=== PATIENT | male | born 1970 | race African-American/Black ===

== ENCOUNTER 2019-10-17 14:15 | Inpatient (IN) | payer SELFPAY ==
[~2019-10-17] VITALS: Ht 167.6 cm; Wt 46.7 kg
[2019-10-17] VITALS (12 sets, daily range): BP systolic 124–173; BP diastolic 80–114
--- NOTE | 2019-10-17 14:20 | NUR ---
[address], altered passed out in sidewalk. 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 bg 80 well logging captain, was given 1 1/2 liter ns well logging captain. rectal prolapse noted. On room air, connected to the monitor and pulse ox, cooling measures initiated. Warm to touch. MD at bedside. Will continue to monitor accordingly.
[2019-10-17] MEDS ORDERED: IV NS 0.9% 500 ML BAG IV ONE (14:30)
[2019-10-17] MEDS ORDERED: IV NS 0.9% 1,000 ML BAG IV ONE (14:30)
[2019-10-17 14:55] LABS: BASOPHILS % (AUTO) 0.1 % (0.0-2.0); EOSINOPHILS % (AUTO) 0.1 % (0.0-6.0); HEMATOCRIT 26 % (39-51); HEMOGLOBIN 8.5 g/dL (13.5-17.5); LYMPHOCYTES % (AUTO) 12.9 % (20.0-44.0); MEAN CORPUSCULAR HGB CONC 32 g/dl (31.0-36.0); MEAN CORPUSCULAR VOLUME 103 fL (80-96); MONOCYTES # (AUTO) 0.8 /CMM (0.1-1.30); MONOCYTES % (AUTO) 10.9 % (2.0-12.0); NEUTROPHILS # (AUTO) 5.7 /CMM (1.8-8.9); PLATELET COUNT (AUTO) 133 /CMM (150-450); RED BLOOD CELL COUNT(AUTO) 2.56 MIL/uL (4.5-6.0); WHITE BLOOD COUNT (AUTO) 7.5 K/uL (4.3-11.0)
[2019-10-17 15:11] LABS: ALANINE AMINOTRANSFERASE 23 U/L (12-78); ALBUMIN 1.7 g/dL (3.4-5.0); ALKALINE PHOSPHATASE 29 U/L (46-116); ASPARTATE AMINOTRANSFERASE 68 U/L (15-37); BILIRUBIN,DIRECT 0.3 mg/dL (0.0-0.2); BILIRUBIN,TOTAL 0.5 mg/dL (0.2-1.0); CALCIUM, SERUM 6.4 mg/dL (8.5-10.1); CHLORIDE 97 mmol/L (98-107); CREATININE 3.2 mg/dL (0.6-1.3); GLUCOSE 56 mg/dL (74-106); SODIUM SERUM 129 mmol/L (136-145); TOTAL PROTEIN, SERUM 4.1 g/dL (6.4-8.2); UREA NITROGEN, BLOOD 36 mg/dL (7-18)
[2019-10-17 15:14] LABS: CARBON DIOXIDE 9 mmol/L (21-32); POTASSIUM 2.3 mmol/L (3.5-5.1)
--- NOTE | 2019-10-17 15:20 | NUR ---
CALLED [facility]AGED DR TORRES
[2019-10-17] MEDS ORDERED: POTASSIUM CHLORIDE 10 MEQ/50 ML PREMIXED IVPB FOR PERIPHERAL LINE IV ONE (15:30)
[2019-10-17] MEDS ORDERED: DEXTROSE 50%-WATER 50 ML DISP.SYRIN IVP ONE (15:30)
[2019-10-17] MEDS ORDERED: DEXTROSE 50%-WATER 50 ML DISP.SYRIN ONE (15:45)
--- NOTE | 2019-10-17 15:45 | NUR ---
CALLED [facility] PAGED DR TORRES
[2019-10-17] MEDS ORDERED: POTASSIUM CL. PREMIX PERIPHER. 50 ML ONE (15:51)
[2019-10-17] MEDS ORDERED: LORAZEPAM INJ 2 MG/ML VIAL IV ONE ×3 (16:00→17:30)
[2019-10-17] MEDS ORDERED: ONDANSETRON HCL/PF 4 MG/2 ML VIAL IV ONE (16:00)
[2019-10-17] MEDS ORDERED: ONDANSETRON HCL/PF 4 MG/2 ML VIAL ONE (16:03)
[2019-10-17] MEDS ORDERED: LORAZEPAM INJ 2 MG/ML VIAL ONE ×3 (16:04→17:11)
--- NOTE | 2019-10-17 16:08 | NUR ---
PT NOTED HAVING CONVULSION, TACHY AT 128, ERMD AT BEDSIDE. MEDICATED ORDERED.
[2019-10-17 16:09] LABS: CREATINE KINASE, TOTAL 547 U/L (39-308)
[2019-10-17 16:17] LABS: THYROID STIMULATING HORMONE 1.576 uIU/mL (0.358-3.74)
--- NOTE | 2019-10-17 16:24 | NUR ---
ICU 252
[2019-10-17 16:28] LABS: APPEARANCE,URINE Slightly Cloudy (CLEAR); BILIRUBIN,URINE SMALL (NEGATIVE); BLOOD, URINE Moderate Ery/uL (NEGATIVE); COLOR,URINE Yellow (YELLOW); KETONES,URINE Negative (NEGATIVE); LEUKOCYTE ESTERASE ,URINE Negative (NEGATIVE); NITRITE, URINE Negative (NEGATIVE); PROTEIN,URINE 100 mg/dl (NEGATIVE); UGLUCOSE Negative (NEGATIVE); UROBILINOGEN,URINE 0.2 EU/dL (0.2)
[2019-10-17 16:34] LABS: WBC,URINE 0-2 /HPF (0-3)
[2019-10-17 16:35] LABS: BACTERIA,URINE Few /HPF (None Seen); COARSE GRANULAR CASTS,URINE Few /LPF (None Seen); SQUAMOUS EPITHELIAL CELL,UR Few /HPF (None Seen)
[2019-10-17] MEDS ORDERED: LORAZEPAM INJ 2 MG/ML VIAL IV PRN (18:00)
--- NOTE | 2019-10-17 18:03 | NUR ---
viticulturist RECEIVED PT FROM ER NON RESPONSIVE DOES NOT FOLLOW MOVES EXTREMITIES, VS STABLE PROVIDED BEDBATH PT HAD LOOSE BM, MD DR MELISSA Zurita AT BEDSIDE WILL PUT ORDERS TO FOLLOW, WILL CONTINUE TO MONITOR. PT HAS SKIN TEAR L SHOULDER AND L KNEE
--- NOTE | 2019-10-17 18:06 | NUR ---
wheeled patient via gurney accompanied by another RN in no distress. RN Oscar at bedside to assume care.
[2019-10-17] MEDS ORDERED: ONDANSETRON HCL/PF 4 MG/2 ML VIAL IVP PRN (18:30)
[2019-10-17] MEDS ORDERED: ACETAMINOPHEN 650 MG/SUPP.RECT RC PRN (18:30)
[2019-10-17] MEDS: IV D5/0.45 NACL 1,000 ML IV PRN (18:40)
[2019-10-17 18:58] LABS: HEMATOCRIT 39 % (39-51); HEMOGLOBIN 12.9 g/dL (13.5-17.5); LYMPHOCYTES # (AUTO) 0.8 /CMM (0.8-4.8); LYMPHOCYTES % (AUTO) 5.5 % (20.0-44.0); MEAN CORPUSCULAR HGB CONC 33 g/dl (31.0-36.0); MEAN CORPUSCULAR VOLUME 100 fL (80-96); MONOCYTES # (AUTO) 1.5 /CMM (0.1-1.30); MONOCYTES % (AUTO) 10.2 % (2.0-12.0); NEUTROPHILS # (AUTO) 12.1 /CMM (1.8-8.9); NEUTROPHILS % (AUTO) 84.3 % (43.0-81.0); PLATELET COUNT (AUTO) 115 /CMM (150-450); RED BLOOD CELL COUNT(AUTO) 3.94 MIL/uL (4.5-6.0); WHITE BLOOD COUNT (AUTO) 14.3 K/uL (4.3-11.0)
[2019-10-17 19:22] LABS: CALCIUM, SERUM 7.6 mg/dL (8.5-10.1); CREATININE 2.7 mg/dL (0.6-1.3); MAGNESIUM 2.5 mg/dL (1.8-2.4); PHOSPHORUS 5.1 mg/dL (2.5-4.9)
[2019-10-17 19:30] LABS: POTASSIUM 2.8 mmol/L (3.5-5.1)
--- NOTE | 2019-10-17 19:30 | NUR ---
COLLEGE FOOTBALL COACH OPENING NOTE, RECEIVED PATIENT IN BED AWAKE/ALERT X1. PATIENT IS VERY LETHARGIC. NOT ABLE TO COMMUNICATE AT THIS TIME. ON 2L NS , TOLERATING WELL WITH 100%. COVID RESULT PENDING. IV ON RFA #16 AND LFA#18 FLUSHING WELL. RUNNING D51/5NS @125. NO S/S OF INFILTRATION NOTED. TANYA UPPER EXTREMITIES CONTRACTED. FC DRAINING CLEAR/YELLOW URINE TO THE GRAVITY. SAFETY MEASURES IN PLACE. SR UPX2 BED IN LOW/LOCKED POSITION CALL LIGHT WITHIN REACH. WILL CONTINUE TO MONITOR THE PATIENT CLOSELY.
[2019-10-17] MEDS ORDERED: Thiamine 100 MG in IV D5W 50 ML IV SCH (20:00)
--- NOTE | 2019-10-17 20:00 | NUR ---
RECEIVED CRITICAL LAB VALUE FROM LAB. WHITEPRINTING MACHINE OPERATOR DR VINAYAK GARCIA NOTIFIED. PROTOCOL INITIATED. VSS. NO S/S OF DISTRESS AT THIS TIME. WILL CONTINUE TO MONITOR.
[2019-10-17] MEDS: POTASSIUM CL. PREMIX PERIPHER. 50 ML IV SCH ×2 (20:19→21:31)
[2019-10-17] MEDS ORDERED: Folic acid 1 MG in IV D5W 50 ML IV SCH (21:00)
--- NOTE | 2019-10-17 21:00 | NUR ---
CRITICAL LAB VALUE, PROCALCITONIN @37.38 WAS REPORTED FROM LAB BUILDING DRAFTING OFFICER . DR LICEA WAS NOTIFIED. WILL CONTINUE TO MONITOR THE PATIENT CLOSELY
[2019-10-17 23:20] LABS: CALCIUM, SERUM 7.2 mg/dL (8.5-10.1); CREATININE 2.2 mg/dL (0.6-1.3); POTASSIUM 3.1 mmol/L (3.5-5.1)
[2019-10-18] VITALS (24 sets, daily range): BP systolic 116–156; BP diastolic 77–100
[2019-10-18 04:51] LABS: BASOPHILS % (AUTO) 0.2 % (0.0-2.0); HEMATOCRIT 35 % (39-51); HEMOGLOBIN 11.7 g/dL (13.5-17.5); LYMPHOCYTES # (AUTO) 0.7 /CMM (0.8-4.8); LYMPHOCYTES % (AUTO) 8.1 % (20.0-44.0); MEAN CORPUSCULAR HGB CONC 34 g/dl (31.0-36.0); MEAN CORPUSCULAR VOLUME 97 fL (80-96); MONOCYTES # (AUTO) 0.9 /CMM (0.1-1.30); NEUTROPHILS # (AUTO) 6.9 /CMM (1.8-8.9); NEUTROPHILS % (AUTO) 80.7 % (43.0-81.0); PLATELET COUNT (AUTO) 126 /CMM (150-450); RED BLOOD CELL COUNT(AUTO) 3.61 MIL/uL (4.5-6.0); WHITE BLOOD COUNT (AUTO) 8.5 K/uL (4.3-11.0)
[2019-10-18 05:10] LABS: CALCIUM, SERUM 7.7 mg/dL (8.5-10.1); CREATININE 1.8 mg/dL (0.6-1.3); MAGNESIUM 2.3 mg/dL (1.8-2.4); PHOSPHORUS 3.5 mg/dL (2.5-4.9); POTASSIUM 2.9 mmol/L (3.5-5.1)
[2019-10-18 05:13] LABS: THYROID STIMULATING HORMONE 1.93 uIU/mL (0.358-3.74)
[2019-10-18] MEDS: POTASSIUM CL. PREMIX PERIPHER. 50 ML IV SCH ×4 (06:11→10:27)
[2019-10-18] MEDS: IV D5/0.45 NACL 1,000 ML IV PRN ×2 (06:16→18:31)
--- NOTE | 2019-10-18 06:54 | NUR ---
EVICTION SPECIALIST OPENING NOTE, PATIENT IN BED AWAKE/ALERT X2/3. PATIENT IS ABLE TO COMMUNICATE. ON 2L NS , TOLERATING WELL WITH 100%. COVID RESULTED NEGATIVE. IV ON RFA #16 AND LFA#18 FLUSHING WELL. RUNNING D51/5NS @125 AND POTASSIUM 50 ML/HR, NO S/S OF INFILTRATION NOTED. NO MORE CONTRACTION ON UPPER/LOWER EXTREMITIES. FC DRAINING CLEAR/YELLOW URINE TO THE GRAVITY. SAFETY MEASURES IN PLACE. SR UPX3. BED IN LOW/LOCKED POSITION CALL LIGHT WITHIN REACH. WILL ENDORSE THE PATIENT TO AM RN FOR KONSTANTIN.
[2019-10-18] MEDS ORDERED: PANTOPRAZOLE 40 MG VIAL IV SCH (09:00)
--- NOTE | 2019-10-18 09:46 | NUR ---
CEILING CLEANER RECEIVED PT IN BED AO X3 DROWSY, IV ACCESS X2 PATENT, SWANN CAT PATENT DRAINING YELLOW URINE, SAFETY PRECAUTIONS TAKEN, CALL LIGHT W/ IN REACH CALLED PHARMACY SPOKE WITH TATY TO RECHECK IF RIGHT AMOUNT OF POTASSIUM CHLORIDE IS ORDERED PHARMACYST GAVE OK TO CONTINUE TO GIVE 8 BAGS TOTAL OF 80 MEQ. WILL FOLLOW ORDERS AND CONT TO MONITOR PT.
[2019-10-18] MEDS ORDERED: POTASSIUM CHLORIDE 20 MEQ TAB.PRT.SR PO ONE (12:00)
--- NOTE | 2019-10-18 12:53 | NUR ---
horticultural worker pt transfered to med surger floor under stable conditions aox2 vs stable l forearm skin tear noticed picture taken dressing placed, zamora removed as ordered pt in room 308-1 stable conditiosn.
--- NOTE | 2019-10-18 12:55 | NUR ---
RN NOTES RECEIVED PATIENT FROM ICU, REPORT GIVEN BY MELISSA RN. ALERT ORIENTED X 2-3. NO ACUTE DISTRESS NOTED, BREATHING UNLABORED, NO SOB NOTED. IV ACCESS PATENT AND INTACT, NO REDNESS, NO BLEEDING, NO SWELLING NOTED. SAFETY MEASURES IN PLACE. CALL LIGHT WITHIN REACH. WILL CONTINUE TO MONITOR ACCORDINGLY.
[2019-10-18] MEDS: THIAMINE HCL 100 MG TABLET PO SCH (12:59)
[2019-10-18] MEDS: FOLIC ACID 1 MG TABLET PO SCH (12:59)
--- NOTE | 2019-10-18 15:00 | NUR ---
MS RN NOTES PATIENT URINATED NOTED 500 ML CLEAR YELLOW URINE.
--- NOTE | 2019-10-18 16:19 | NUR ---
11:30am Supervisor Litharge met with patient at bedside for Supervisor Litharge consultation. Patient is a 49 year old male, considered to be homeless. Patient is alert and oriented x2. Patient was lying down in bed. Throughout the interview, the patient would close his eyes and remain silent for a few minutes and this SW would call out his name to redirect him. Patient was responsive to this. Patient stated that he lives in an apartment with his sister Johanna . Patient was able to confirm his date of , social security number and address on the face sheet. 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 Patient reports that the sister pays him $45 a day. Patient reports that he consumes 2 wine bottles every single day. Patient stated that he has been drinking 2 bottles for months now. Patient denies any drug use. Patient reports smoking a pack of cigarettes every day. Patient reports past history of suicidal ideation and mentioned one attempt, patient stated 20 years ago not now and showed this SW some scarring on his wrist. Patient denies homicidal ideation. Patient reports visual hallucinations in his dream of a figure, just standing there no words or movement. Patient reports that he was diagnosed with schizophrenia and currently denies taking any medications. Patient reports not having psychiatrist on his primary care team and shook his head up and down in agreement of receiving resources on mental health treatment from this SW. Patient provided verbal consent for this SW to contact his sister Johanna to confirm that he lives in the home. SW to also provide the patient with mental health resources. This SW to remain available for all patient needs.
--- NOTE | 2019-10-18 16:21 | NUR ---
1:00pm SW was able to contact this patient sister Johanna at . Johanna, patients sister, confirms that patient does live with her at the residence on file. Patients sister would like resources for GR benefits and alcohol treatment for her brother. This SW to provide the patient with this information after formally discussing this with him. Patients sister asked for information to be sent via email at [email or web address], this SW to try to send resources via email but will also leave paper copy with the patient. This SW to remain available to the patient as needed.
--- NOTE | 2019-10-18 18:53 | NUR ---
MS RN NOTES PATIENT IN BED ALERT ORIENTED X 2-3. NO ACUTE DISTRESS NOTED, BREATHING UNLABORED, NO SOB NOTED. IV ACCESS PATENT AND INTACT, NO REDNESS, NO BLEEDING, NO SWELLING NOTED. NEEDS ATTENDED AND ANTICIPATED. SAFETY MEASURES IN PLACE. CALL LIGHT WITHIN REACH. WILL ENDORSE TO NIGHT NURSE FOR CONTINUITY OF CARE
--- NOTE | 2019-10-18 20:00 | NUR ---
MS/RN OPENING NOTE Patient awake in bed. A/O x 2-3. Face is symmetrical. Mucous membranes pink and moist. No JVD. Pedal pulses 2+, symmetrical. Breath sounds even, clear, unlabored, no signs of acute distress or SOB. Abdomen soft, round, non tender. Patient voids via urinal, clear yellow urine. IV site patent and intact. No signs of infiltration. Extremity strength WNL. Skin tear/burn noted on left shoulder, left knee, and left forearm. Wound bed bright pink/red. Wounds dressed in xeroform and krilex. Dressing dry and intact, no drainage. Bed in low position, wheels locked, side rails up x2, call light within reach.
[2019-10-19 00:51] VITALS: BP 153/100
--- NOTE | 2019-10-19 06:03 | NUR ---
MS/RN CLOSING NOTE Patient asleep in bed. A/O x 2-3. Breath sounds even, clear, unlabored, no signs of acute distress or SOB. Abdomen soft, round, non tender. Patient voids via urinal, clear yellow urine. IV site patent and intact. No signs of infiltration. Extremity strength WNL. Skin tear/burn noted on left shoulder, left knee, and left forearm. Wound bed bright pink/red. Wounds dressed in xeroform and kirlex. Dressing dry and intact, no drainage. Bed in low position, wheels locked, side rails up x2, call light within reach.
[2019-10-19 06:43] LABS: EOSINOPHILS % (AUTO) 0.2 % (0.0-6.0); HEMATOCRIT 36 % (39-51); HEMOGLOBIN 11.8 g/dL (13.5-17.5); LYMPHOCYTES # (AUTO) 0.5 /CMM (0.8-4.8); LYMPHOCYTES % (AUTO) 6.9 % (20.0-44.0); MEAN CORPUSCULAR HGB CONC 33 g/dl (31.0-36.0); MEAN CORPUSCULAR VOLUME 99 fL (80-96); MONOCYTES # (AUTO) 0.9 /CMM (0.1-1.30); MONOCYTES % (AUTO) 11.3 % (2.0-12.0); NEUTROPHILS # (AUTO) 6.3 /CMM (1.8-8.9); NEUTROPHILS % (AUTO) 81.6 % (43.0-81.0); PLATELET COUNT (AUTO) 137 /CMM (150-450); RED BLOOD CELL COUNT(AUTO) 3.62 MIL/uL (4.5-6.0); WHITE BLOOD COUNT (AUTO) 7.7 K/uL (4.3-11.0)
[2019-10-19 07:10] LABS: CALCIUM, SERUM 7.8 mg/dL (8.5-10.1); MAGNESIUM 2.2 mg/dL (1.8-2.4); PHOSPHORUS 2.1 mg/dL (2.5-4.9); POTASSIUM 3.2 mmol/L (3.5-5.1)
[2019-10-19] MEDS ORDERED: PANTOPRAZOLE 40 MG TABLET.DR PO SCH (07:30)
[2019-10-19 08:00] VITALS: BP 127/87
[2019-10-19] MEDS: THIAMINE HCL 100 MG TABLET PO SCH (08:36)
[2019-10-19] MEDS: FOLIC ACID 1 MG TABLET PO SCH (08:36)
[2019-10-19 11:05] LABS: IRON, SERUM 35 ug/dl (50-175); TOTAL IRON BINDING CAPACITY 966 ug/dl (250-450)
[2019-10-19] MEDS: POTASSIUM PHOSPHATE MM 7.5 MMOL in IV NS 0.9% 100 ML IV SCH ×2 (11:13→15:24)
[2019-10-19 11:19] LABS: FERRITIN 163 ng/mL (8-388)
[2019-10-19] MEDS ORDERED: METOPROLOL TARTRATE INJ 5 MG/5 ML AMPUL ONE ×3 (11:47→13:35)
[2019-10-19] MEDS ORDERED: NITROGLYCERIN 4.9 GM SPRAY ONE (11:48)
[2019-10-19] MEDS ORDERED: IV NS 0.9% 250 ML IV ONE (12:04)
[2019-10-19] MEDS ORDERED: IOHEXOL-350 100 ML VIAL IV ONE (12:04)
[2019-10-19] MEDS ORDERED: NITROGLYCERIN 4.9 GM SPRAY SL ONE (12:30)
[2019-10-19] MEDS ORDERED: METOPROLOL TARTRATE INJ 5 MG/5 ML AMPUL IVP ONE ×2 (12:30→13:30)
[2019-10-19] MEDS ORDERED: IV NS 0.9% 500 ML IV PRN (12:30)
[2019-10-19] MEDS ORDERED: VERAPAMIL HCL IV 5 MG/2 ML VIAL ONE (12:40)
[2019-10-19] MEDS ORDERED: NITROGLYCERIN 0.4 MG/TAB BOTTLE SL ONE (13:30)
[2019-10-19 16:00] VITALS: BP 119/77
--- NOTE | 2019-10-19 17:22 | NUR ---
MS RN NOTES SPOKE TO PATIENTS SISTER WILL WAIT FOR PATIENT AT HOME AND ASSIST PATIENT HOME. PATIENTS SISTER DOES NOT HAVE A CARE AND SHE IS UNABLE TO PICK PATIENT UP. [facility] WILL BE ARRANGED.
--- NOTE | 2019-10-19 18:10 | NUR ---
MS RN NOTES PATIENT DISCHARGED HOME IN STABLE CONDITION. DISCHARGE INSTRUCTIONS PROVIDED TO PATENT AND PATIENTS SISTER, BOTH VERBALIZED UNDERSTANDING. INSTRUCTED PATIENT AND PATIENTS SISTER WITH INSTRUCTIONS OF WOUND CARE. PROVIDED SUPPLIES TO PATIENT. CALLED SISTER WHEN DROPPING PATIENT OF TO THE [facility], PATIENTS SISTER WAITING FOR PATIENT OUTSIDE OF THE BUILDING TO ASSIST PATIENT. PERIPHERAL IV REMOVED WITH MINIMAL BLEEDING. IB BAND REMOVED. DISCHARGE PROTOCOL FOLLOWED. PATIENT REFUSED DISCHARGE PICTURES. ESCORTED PATIENT TO [facility].
== END 2019-10-19 18:12 | disposition home or self-care (01) | DRG 922 ==
LOC: EDBD 14:18 → ER 14:18 → ICU 17:20 → TELE 10-18 12:42 → MED 10-18 17:57
DX: T67.01XA Heatstroke and sunstroke, initial encounter (principal); I21.A1 Myocardial infarction type 2; N17.0 Acute kidney failure with tubular necrosis; R40.2312 Coma scale, best motor response, none, at arrival to emergency department; R40.2122 Coma scale, eyes open, to pain, at arrival to emergency department; R40.2212 Coma scale, best verbal response, none, at arrival to emergency department; E87.1 Hypo-osmolality and hyponatremia; G93.40 Encephalopathy, unspecified; E87.2 Acidosis; X58.XXXA Exposure to other specified factors, initial encounter; Y93.9 Activity, unspecified; Y92.89 Other specified places as the place of occurrence of the external cause; R56.9 Unspecified convulsions; E87.6 Hypokalemia; E86.0 Dehydration; E16.2 Hypoglycemia, unspecified; D53.9 Nutritional anemia, unspecified; R31.29 Other microscopic hematuria; I95.9 Hypotension, unspecified; F10.20 Alcohol dependence, uncomplicated; Z59.0 Homelessness
CPT/HCPCS: 36415; 70450-TC; 71045-TC; 75574; 80048-TC; 80061-TC; 80076-TC; 80305; 81000-TC; 82550-TC; 82553; 82728-TC; 82962-TC; 83540-TC; 83605-TC; 83735-TC; 83880; 84100-TC; 84439-TC; 84443-TC; 84484-TC; 85025-TC; 85730-TC; 87040-TC; 87081-TC; 87086-TC; 92611-TC; 93307-TC; 97116-TC; 97530-TC; A6403; C9113; G0378; G0480; J2060; J2405; J3411; J3480; J3490; J7030; J7050; J7060; Q9967